=== PATIENT | female | born 1990 | race Caucasian/White ===

== ENCOUNTER 2022-10-16 10:12 | Outpatient (CLI) | payer BC, SELFPAY | END 2022-10-16 10:13 | disposition home or self-care (01) | PROVIDERS: Visit Provider Physician Assistant | DX: Z34.91 Encounter for supervision of normal pregnancy, unspecified, first trimester (principal); Z3A.13 13 weeks gestation of pregnancy | CPT/HCPCS: 87086 ==

== ENCOUNTER 2023-01-06 08:15 | Outpatient (CLI) | payer BC, SELFPAY ==
--- NOTE | 2023-01-06 08:15 | CRLHL7_ITS ---
For Patients: As a result of the Cures Act, medical imaging exams and procedure reports are released immediately into your electronic medical record. You may view this report before your referring provider. If you have questions, please contact your health care provider. 3rd TRIMESTER TWIN GROWTH INDICATION: Third trimester scan, evaluate growth in a twin gestation. COMPARISON: None TECHNIQUE: Real-time grayscale imaging of the twins was performed as well as color Doppler and spectral Doppler analysis of the umbilical arteries. FINDINGS: Sonographic imaging demonstrates a living twin diamniotic/dichorionic intrauterine gestation. Twin A demonstrates a regular cardiac rate of 154 beats per minute. Twin A has a vertex maternal right position. The placenta lies anterior. Amniotic fluid volume appears normal and the largest fluid pocket measures 7.3 cm. The estimated weight is 894 gm which lies at the 76th percentile. BPD 15th percentile. HC 16th percentile. AC 92nd percentile. FL 32nd percent. The HC/AC ratio measures 1.00 range (1.04-1.22). Twin B demonstrates a regular cardiac rate of 154 beats per minute. Twin B has a breech maternal left position. The placenta lies posterior. Amniotic fluid volume appears normal and the largest fluid pocket measures 4.7 cm. The estimated weight is 926 gm which lies at the 84th percentile. BPD 32nd percentile. HC 25th percentile. AC 93rd percentile. FL 43rd percentile. The HC/AC ratio measures 1.01 range (1.04-1.22). IMPRESSION: Twin A: Sonographic gestational age 25 weeks 3 days and sonographic due date 04/18/2023. Estimated weight 76th percentile. Abdominal circumference 92nd percentile. Twin B: Sonographic gestational age 25 weeks 6 days and sonographic due date of 04/15/2023. Estimated weight 84th percentile. Abdominal circumference 93rd percentile. Dictated by Harris Cuellar MD @ 01/06/2023 10:51:48 AM (Electronically Signed)
== END 2023-01-06 08:16 | disposition home or self-care (01) ==
PROVIDERS: Visit Provider Obstetrics & Gynecology
DX: O30.043 Twin pregnancy, dichorionic/diamniotic, third trimester (principal); Z3A.25 25 weeks gestation of pregnancy
CPT/HCPCS: 76816

== ENCOUNTER 2023-01-29 19:43 | Outpatient (CLI) | payer BC, SELFPAY ==
[2023-01-29] VITALS (7 sets, daily range): BP systolic 72–123; BP diastolic 38–85; PULSE 55–96; RESP 16; TEMP 37.2; O2SAT 96
--- NOTE | 2023-01-29 20:17 | PM.OBHPAP1 ---
OB - H&P; HPI Antepartum History of Present Illness Time Seen by Provider: 20:17 Date Seen: 01/29/23 Chief complaint: Ob unscheduled outpatient Narrative: Delicia Celis is a 32 year old female 2 para 1001 who presents at 28 weeks twin gestation which is di/di with a sudden onset of pelvic pain which is intermittent. Sometimes it is sharp and sometimes crampy. Patient denies any change in discharge. No vaginal bleeding. No spontaneous rupture membranes No recent sex. No fever shakes or chills. No other GI or complaints. No recent trauma. Patient states that her antepartum history thus far has been unremarkable. She has a history of a 37 week delivery. Specific Issues/Plans Transfer of care 13w4d P3G2-4-5-4 1. Di/Di twin gestation ASA 81mg MFM referral Level 2 US: Normal anatomy for both the twins. Growth US q 4 weeks starting after 20 week US 24 weeks: Twin A - cephalic, MVP 7.3 cm. EFW 76%, AC 92%. Twin B - Breech, MVP 4.7 cm, EFW 84%, AC 93% Weekly BPP starting at 32 weeks Delivery recommended 38-38 6/7 LDA initiated 2. History of gestational diabetes, diet controlled Hgb A1-C: 5.2% Early 1hr GTT at 16-20: 108 3. Depression, doing well on sertraline 50 mg. Initiated and has been on it for the past 2 years Flu shot: Covid: vaccinated Tdap: labs 02/08/2023: O positive, negative antibody screen. Hemoglobin 13.7, platelets 279, rubella immune. RPR negative. Hepatitis surface antigen negative, hep C nonreactive. HIV nonreactive. Gonorrhea and chlamydia negative. Pap 03/2022: NIL/-HPV First-trimester US 10/03/22: Di/Di twin gestation. Twin A: 11w3d, GABRIELLE 04/19/23. Twin B: 11w3d, GABRIELLE 04/19/23 History of Present Dating criteria: based on 1st trimester US only care: good care Ultrasounds: normal 1st trimester US complications: multiple Medical complications: none Meds Home Medications and Allergies Home Medications Medication Instructions Recorded Confirmed Type prenat.vits,razia,euc-esqp-txofx 1 tab PO QDAY 10/16/22 01/29/23 History sertraline 50 mg tablet 50 mg PO DAILY 10/16/22 01/29/23 History aspirin 81 mg chewable tablet 81 mg PO QDAY 11/11/22 01/29/23 History calcium carbonate 200 mg calcium 200 mg PO BID 12/05/22 01/29/23 History (500 mg) chewable tablet (Tums) sertraline 100 mg tablet 100 mg PO QAM 01/29/23 01/29/23 History Allergies Allergy/AdvReac Type Severity Reaction Status Date / Time No Known Drug Allergies Allergy Verified 01/06/23 09:07 OB - H&P: Exam Physical Exam: Vital signs: Temp Pulse Resp BP Pulse Ox 99.0 F 96 16 121/70 96 01/29/23 19:52 01/29/23 19:52 01/29/23 19:52 01/29/23 19:52 01/29/23 19:58 Constitutional: Constitutional: no acute distress Routine HEENT Exam: Head: Present normal inspection Detailed Labor and Delivery Exam: Patient Gravid: Yes Dilation (cm): 1 Cervix position: anterior Consistency: soft Cervical ripeness score: 50 Contraction frequency (min): 3 Contraction duration (sec): 33 Fetus (Single): Station: -1 Amniotic Membrane Status: intact Heart Rate Baseline: 133 Monitor Accelerations: Present Monitor Decelerations: None Transformation Consultant Variability: Moderate (6-25) Fetus A: station: -1 OB - A/P Antepartum Assessment and Plan (1) Dichorionic diamniotic twin gestation: Status: Acute Plan Twenty-eight week twin . labor. fibronectin done. Patient will be transferred to a level 3 institution. Patient to get 4 g of Mag for neuro protection followed by 2 grams/hour. Betamethasone given. Nifedipine 20 mg p.o. given. Additional Plan Plan: other
[2023-01-29] MEDS: LACTATED RINGERS 1000 ML 1,000 ML 75 ML IV (20:46)
[2023-01-29] MEDS: BETAMETHASONE SOD PHOS/ACETATE 6 MG/ML ML 12 MG IM (20:49)
[2023-01-29] MEDS: MAGNESIUM IV 4 GM/100 ML PIGGYBACK IVPB (20:52)
[2023-01-29] MEDS: NIFEdipine 10 MG CAPSULE 20 MG PO (20:52)
[2023-01-29 20:58] LABS: Fetal Fibronectin* Negative (Negative)
[2023-01-30 18:17] LABS: Strep B DNA Probe NEGATIVE (Negative)
[2023-01-30 23:36] LABS: Strep B Pen/Amox Allergy No
--- NOTE | 2023-02-28 17:05 | PC.OBNST ---
NST Note NST Note Start: 01/29/23 19:51 Freq: ONCE Status: Discharge Protocol: Document 01/29/23 21:50 CHELSEA (Rec: 01/29/23 23:13 CHELSEA [id number]) NST Note 2 Para (# of births) 1 EDC 04/19/23 Gestational Age In Weeks & Days 28 Weeks & 4 Days High Risk Factors Twins Patient Presented with Complaint(s) of Contractions/cramping,Other Other Complaints Cervical changes Appropriate for Gestational Age Yes RN Aly Mireles, SAMMY Date 01/29/23 Appropriate for Gestational Age Yes SAMMY Loco RN Date 01/29/23 OB NST charge Yes Complete NST Note via Write Note Yes The provider's electronic signature indicates the NST is reactive/appropriate for gestational age. *Note to provider: If an addendum is required, open the patient's chart and click on the note under the Nurse/Allied Health tab.
--- NOTE | 2023-02-28 17:39 | PC.OBNST ---
NST Note NST Note Start: 01/29/23 19:51 Freq: ONCE Status: Discharge Protocol: Document 01/29/23 21:50 CHELSEA (Rec: 01/29/23 23:13 CHELSEA [id number]) NST Note 2 Para (# of births) 1 EDC 04/19/23 Gestational Age In Weeks & Days 28 Weeks & 4 Days High Risk Factors Twins Patient Presented with Complaint(s) of Contractions/cramping,Other Other Complaints Cervical changes Appropriate for Gestational Age Yes RN Aly Mireles, ASMMY Date 01/29/23 Appropriate for Gestational Age Yes SAMMY Loco RN Date 01/29/23 OB NST charge Yes Complete NST Note via Write Note Yes The provider's electronic signature indicates the NST is reactive/appropriate for gestational age. *Note to provider: If an addendum is required, open the patient's chart and click on the note under the Nurse/Allied Health tab.
== END 2023-01-29 21:45 ==
LOC: OB OUT 19:43 → OB 19:43
PROVIDERS: Visit Provider Specialist
DX: O30.042 Twin pregnancy, dichorionic/diamniotic, second trimester (principal)
CPT/HCPCS: 59025; 81003; 84112; 87081; 87086; 87653; 99213; A9270; J0702; J3475; J7120

== ENCOUNTER 2023-01-29 21:28 | Outpatient (CLI) | payer BC, OTHER, SELFPAY | END 2023-01-29 21:29 | disposition home or self-care (01) | LOC: AMB 02-09 03:48 | PROVIDERS: Visit Provider Emergency Medicine | DX: O47.03 False labor before 37 completed weeks of gestation, third trimester (principal); Z3A.28 28 weeks gestation of pregnancy | CPT/HCPCS: A0425; A0426 ==

== ENCOUNTER 2023-01-30 20:28 | Outpatient (CLI) | payer BC, SELFPAY ==
[2023-01-30] MEDS: BETAMETHASONE SOD PHOS/ACETATE 6 MG/ML ML 12 MG IM (20:38)
== END 2023-01-30 20:45 | disposition home or self-care (01) ==
LOC: OB CLI 20:28 → OB 20:31
PROVIDERS: Visit Provider Specialist
DX: O30.003 Twin pregnancy, unspecified number of placenta and unspecified number of amniotic sacs, third trimester (principal); Z3A.29 29 weeks gestation of pregnancy
CPT/HCPCS: 99211; J0702

== ENCOUNTER 2023-02-02 07:25 | Outpatient (CLI) | payer BC, SELFPAY ==
--- NOTE | 2023-02-02 07:15 | CRLHL7_ITS ---
For Patients: As a result of the Century Cures Act, medical imaging exams and procedure reports are released immediately into your electronic medical record. You may view this report before your referring provider. If you have questions, please contact your health care provider. INDICATION: female. Twin . Follow up. Evaluate growth. TECHNIQUE: Real-time allen scale imaging of the twins was performed as well as color Doppler and spectral Doppler analysis of the umbilical arteries. COMPARISON: January 06, 2023. FINDINGS: Twin A is in vertex presentation toward the right of midline. Anterior placenta. heart rate 136 beats per minute. Normal amniotic fluid. Single deepest pocket measurement 5.5 cm. Biparietal diameter 7.2 cm, 29 weeks 0 days, 33rd percentile. Head circumference 26.4 cm, 28 weeks 5 days, 9th percentile. Abdominal circumference 26.5 cm, 30 weeks 4 days, 84th percentile. Femur length 5.3 cm, 28 weeks 1 day, 12th percentile. Composite calculated ultrasound age 29 weeks 1 day with a sonographic due date of April 19, 2023. Estimated weight 1403 g which lies at the 58th percentile. The head to abdominal circumference ratio is normal at 1.0 (0.99-1.21). Appropriate growth and maturation in the interval. Twin B is breech presentation toward the maternal left side. heart rate 146 beats per minute. Posterior placenta. Normal amniotic fluid volume index 4.2 cm. Biparietal diameter 7.1 cm, 28 weeks 3 days, 17th percentile. Head circumference 26.3 cm, 28 weeks 4 days, 9th percentile. Abdominal circumference 26.8 cm, 31 weeks 0 days, 90th percentile. Femur length 5.3 cm, 28 weeks 2 days, 16th percentile. Composite calculated ultrasound age 29 weeks 1 day with a sonographic due date of April 19, 2023. Appropriate growth and maturation in the interval. Estimated weight 1438 g which lies at the 58th percentile. Head to abdominal circumference ratio is 0.98 (0.99-1.21). IMPRESSION: Intrauterine twin pregnancies. Appropriate growth and maturation. Composite calculated ultrasound age 29 weeks 1 day. Sonographic due date April 19, 2023. Dictated by Daniel Calvillo MD @ 02/02/2023 9:23:28 AM (Electronically Signed)
== END 2023-02-02 07:26 | disposition home or self-care (01) ==
LOC: US 07:25
PROVIDERS: Visit Provider Obstetrics & Gynecology
DX: O30.043 Twin pregnancy, dichorionic/diamniotic, third trimester (principal); Z3A.29 29 weeks gestation of pregnancy
CPT/HCPCS: 76816

== ENCOUNTER 2023-02-13 12:07 | Outpatient (CLI) | payer OTHER, SELFPAY ==
--- NOTE | 2023-02-13 12:15 | CRLHL7_ITS ---
For Patients: As a result of the Century Cures Act, medical imaging exams and procedure reports are released immediately into your electronic medical record. You may view this report before your referring provider. If you have questions, please contact your health care provider. INDICATION: DI-DI TWINS COMPARISON: 02/02/2023 TECHNIQUE: Real time allen scale imaging of the twins was performed. Without non-stress testing. FINDINGS: Sonographic imaging demonstrates a twin living intrauterine gestation. TWIN A: Fetus demonstrates a regular cardiac rate of 152 beats per minute. Fetus has a vertex position, maternal right. The amniotic fluid volume appears normal and there is a single deepest pocket measurement of 5.6 cm. The fetus was active and demonstrated normal breathing movements. There was normal flexion and extension of the trunk and extremities. TWIN B: Fetus demonstrates a regular cardiac rate of 144 beats per minute. Fetus has a vertex position, maternal left. The amniotic fluid volume appears normal and there is a single deepest pocket measurement of 5.6 cm. The fetus was active and demonstrated normal breathing movements. There was normal flexion and extension of the trunk and extremities. IMPRESSION: TWIN A: Normal biophysical profile score of 8 out of 8. TWIN B: Normal biophysical profile score of 8 out of 8. Dictated by Harris Cuellar MD @ 02/13/2023 1:27:04 PM (Electronically Signed)
== END 2023-02-13 12:08 | disposition home or self-care (01) ==
LOC: US 12:08
PROVIDERS: Visit Provider Obstetrics & Gynecology
DX: O30.049 Twin pregnancy, dichorionic/diamniotic, unspecified trimester (principal)
CPT/HCPCS: 76819; 86592

== ENCOUNTER 2023-02-24 14:02 | Outpatient (CLI) | payer OTHER, SELFPAY ==
--- NOTE | 2023-02-24 14:00 | CRLHL7_ITS ---
For Patients: As a result of the Century Cures Act, medical imaging exams and procedure reports are released immediately into your electronic medical record. You may view this report before your referring provider. If you have questions, please contact your health care provider. INDICATION: DI/DI TWINS, BPP COMPARISON: 02.13.23 TECHNIQUE: Real time allen scale imaging of the twins was performed. Without non-stress testing. FINDINGS: Sonographic imaging demonstrates a twin living intrauterine gestation. TWIN A: Fetus demonstrates a regular cardiac rate of 133 beats per minute. Fetus has a vertex position. The amniotic fluid volume appears normal and there is a single deepest pocket measurement of 2.8 cm. The fetus was active and demonstrated normal breathing movements. There was normal flexion and extension of the trunk and extremities. TWIN B: Fetus demonstrates a regular cardiac rate of 150 beats per minute. Fetus has a vertex position. The amniotic fluid volume appears normal and there is a single deepest pocket measurement of 3.7 cm. The fetus was active and demonstrated normal breathing movements. There was normal flexion and extension of the trunk and extremities. IMPRESSION: TWIN A: Normal biophysical profile score of 8 out of 8. TWIN B: Normal biophysical profile score of 8 out of 8. Dictated by Harris Cuellar MD @ 02/25/2023 1:05:13 PM (Electronically Signed)
== END 2023-02-24 14:03 | disposition home or self-care (01) ==
PROVIDERS: Visit Provider Obstetrics & Gynecology
DX: O30.042 Twin pregnancy, dichorionic/diamniotic, second trimester (principal)
CPT/HCPCS: 76819

== ENCOUNTER 2023-02-27 08:20 | Outpatient (CLI) | payer OTHER, SELFPAY ==
[2023-02-27] VITALS (9 sets, daily range): BP systolic 121–140; BP diastolic 78–99; PULSE 74–88; RESP 18; TEMP 37.1
--- NOTE | 2023-02-27 08:45 | CRLHL7_ITS ---
For Patients: As a result of the Century Cures Act, medical imaging exams and procedure reports are released immediately into your electronic medical record. You may view this report before your referring provider. If you have questions, please contact your health care provider. INDICATION: CHECK CERVIX, FLUID, AND PRESENTATION COMPARISON: 02/24/2023 TECHNIQUE: Real-time allen-scale imaging of the pelvis was performed. FINDINGS: Transvaginal measurement of the cervix is 2.7 cm. The cervix is closed. Twin A: position is vertex, maternal right. Placenta posterior. Amniotic fluid normal with single deepest pocket 5.7 cm. heart rate 157 beats per minute. Twin B: position is vertex, maternal left. Placenta anterior. Normal amniotic fluid with single deepest pocket 5.5 cm. heart rate 144 beats per minute. IMPRESSION: Cervix is closed and measures 2.7 cm. Dictated by Harris Cuellar MD @ 02/27/2023 9:44:41 AM (Electronically Signed)
[2023-02-27 08:54] LABS: Appearance Urine Clear (Clear); Bilirubin Urine Negative (Negative); Blood Urine Negative (Negative); Color Urine Yellow (Yellow); Glucose Urine Negative (Negative); Ketones Urine Negative (Negative); Leukocyte Esterase Urine Trace (Negative); Nitrite Urine Negative (Negative); Protein Urine Negative (Negative); Specific Gravity Urine 1.015 (1.000-1.030); Urobilinogen Urine 0.2 (0.2-1.0)
[2023-02-27 09:17] LABS: Bacteria Urine Moderate; RBC Urine 0-2 (0-2); Squamous Epithelial Cell Urine Moderate (None-Few); WBC Urine 0-2 (0-5)
[2023-02-27 09:39] LABS: Fetal Fibronectin* Negative (Negative)
[2023-02-27 09:43] LABS: Hematocrit 36.7 % (33.0-51.0); Hemoglobin* 12.2 gm/dL (12.0-16.0); Mean Corpuscular HGB Conc 33 gm/dL (32-36); Mean Corpuscular Hemoglobin 28 pg (26-34); Mean Corpuscular Volume 84 fL (80-100); Platelet Count* 260 K/uL (140-440); Red Blood Count 4.36 m/uL (4.00-5.20); White Blood Count* 10.09 K/uL (4.50-11.00)
[2023-02-27 09:55] LABS: Total Protein Urine 16 mg/dL
[2023-02-27 09:56] LABS: Creatinine Urine 19.9 mg/dL
[2023-02-27 09:58] LABS: Slide Review Reflex No
[2023-02-27 10:13] LABS: Creatinine* 0.7 mg/dL (0.5-1.5); Estimated Glomerular Filt Rate 117 ml/min
[2023-02-27 10:14] LABS: Alanine Aminotransferase* 296 U/L (4-35); Aspartate Amino Transferase* 146 U/L (12-35); Blood Urea Nitrogen* 12 mg/dL (5-24)
--- NOTE | 2023-02-27 11:06 | PM.OBCN1 ---
OB - CN: HPI Date of Consult Time Seen by Provider: 11:06 Date Seen: 02/27/23 Patient: [facility] Patient Consult date: 02/27/23 Requesting Physician: Kayla Arzola MD Primary Care Provider: Not a Local Provider Consult Narrative Narrative: The patient is a 32 year old G 2 P 1001 at 32 5/7 weeks gestation with di/di twin that was admitted to the [facility] on 02/27/23 for observation. Patient comes in for evaluation after not feeling well for the past couple of days. Patient was mainly concerned about sharp pain in her lower back, looser stools, nauseous and feeling very fatigued yesterday. It felt as when she was in labor with her first baby. Denies fever, chills, dysuria, urgency, constipation, denies sick contacts, any itching or rash in her body. NST at labor and delivery reactive for both fetuses, sporadic and asymptomatic uterine contractions. Patient had one elevated blood pressure of 140/99. Patient denies persistent headaches, visual changes. She has noted pain in her upper abdomen for the past couple of weeks. Preeclampsia labs collected and consistent with significant transaminitis, proteinuria. This would be consistent with preeclampsia with severe features. Specific Issues/Plans Transfer of care 13w4d [id number] 1. Di/Di twin gestation ASA 81mg MFM referralLevel 2 US: Normal anatomy for both the twins. Growth US q 4 weeks starting after 20 week US: ordered 24 weeks: Twin A - cephalic, MVP 7.3 cm. EFW 76%, AC 92%. Twin B - Breech, MVP 4.7 cm, EFW 84%, AC 93% 29 weeks: Twin A - right, vertex, EFW 1403 g or 3 lb 1 oz (50%), BPD 33%, HC 9%, AC 84%, FL 12%, SDP 5.5 cm. Twin B - left, breech, EFW 1438 g or 3 lb 3 oz (58%), BPD 17%, HC 9%, AC 90%, FL 16%, SDP 4.2 cm. Weekly BPP starting at 32 weeks: ordered Delivery recommended 38-38 6/7 2. uterine contractions at 28 weeks - Short admission at [facility] completed a course of steroids. 3. Gestational diabetes, currently diet controlled. History of gestational diabetes, diet controlled Hgb A1-C: 5.2% Early 1hr GTT at 16-20: 108 Repeat 1 hr GTT = 207 3. Depression, doing well on sertraline 50 mg. Initiated and has been on it for the past 2 years Flu shot: Covid: vaccinated Tdap: 02/13/23 labs 02/08/2023: O positive, negative antibody screen. Hemoglobin 13.7, platelets 279, rubella immune. RPR negative. Hepatitis surface antigen negative, hep C nonreactive. HIV nonreactive. Gonorrhea and chlamydia negative. Pap 03/2022: NIL/-HPV First-trimester US 10/03/22: Di/Di twin gestation. Twin A: 11w3d, GABRIELLE 04/19/23. Twin B: 11w3d, GABRIELLE 04/19/23 History of Present Dating criteria: based on LMP care: good care Ultrasounds: normal 1st trimester US complications: preeclampsia History History 2 Elective abortions Para 1 Spontaneous abortions Hx # Term Pregnancies Ectopic pregnancies Hx # Pregnancies Multiple births Number of Living Children 1 Past Pregnancies Del. Date GA/Weeks Outcome Route wt Inf Gender Labor Lgth Anesthesia Location Provider Compli 08/02/20 37 live - full term vaginal delivery 3.175 kg Male 10hrs epidural [place] gestational diabetes [facility] Medical History History of depression ?Z87.59 - Personal history of other complications of , childbirth and the puerperium (ICD-10) ?Z86.59 - Personal history of other mental and behavioral disorders (ICD-10) History of vaginal delivery (08/02/20) History of gestational diabetes (2020) ?Z86.32 - Personal history of gestational diabetes (ICD-10) Surgical History History of wisdom tooth extraction ?K08.409 - Partial loss of teeth, unspecified cause, unspecified class (ICD-10) Social History Narrative: School counselor. . Non smoker Smoking Status: Never smoker Little interest or pleasure in doing things: not at all Feeling down, depressed, or hopeless: not at all Meds Home Medications and Allergies Home Medications Medication Instructions Recorded Confirmed Type prenat.vits,razia,qmo-qlli-fhewl 1 tab PO QDAY 10/16/22 02/27/23 History aspirin 81 mg chewable tablet 81 mg PO QDAY 11/11/22 02/27/23 History calcium carbonate 200 mg calcium 200 mg PO BID 12/05/22 02/27/23 History (500 mg) chewable tablet (Tums) sertraline 100 mg tablet 100 mg PO QAM 01/29/23 02/27/23 History magnesium gluconate 27 mg 27 mg PO QDAY 02/02/23 02/27/23 History magnesium (500 mg) tablet (Mag-G) Allergies Allergy/AdvReac Type Severity Reaction Status Date / Time No Known Drug Allergies Allergy Verified 02/27/23 08:41 OB - H&P: Exam Physical Exam: Vital signs: Pulse BP 78 126/85 02/27/23 10:38 02/27/23 10:38 Narrative: VITAL SIGNS: As noted above. GENERAL APPEARANCE: Alert, cooperative female in no acute distress. MOOD & AFFECT: Normal. HEART: Regular rate and rhythm without murmurs. LUNGS: Lungs are clear to auscultation bilaterally. No crackles, wheezes, or rhonchi. ABDOMEN: Gravid, not tender. : No abnormal discharge. EXTREMITIES: Nonedematous. Well perfused. Nontender. NEURO: Intact. NSTA:130bpm/moderate variability/positive accelerations/negative decelerations NSTB:140bpm/moderate variability/positive accelerations/negative decelerations Irregular, asymptomatic uterine contractions. OB - Results Labs Labs: Short CBC 02/27/23 Range/Units 09:37 WBC 10.09 (4.50-11.00) K/uL Hgb 12.2 (12.0-16.0) gm/dL Hct 36.7 (33.0-51.0) % Plt Count 260 (140-440) K/uL BMP 02/27/23 09:37 BUN 12 Creatinine 0.7 Liver Function 02/27/23 Range/Units 09:37 AST 146 H (12-35) U/L ALT 296 H (4-35) U/L Urine 02/27/23 Range/Units Unknown Urine Color Yellow (Yellow) Urine Appearance Clear (Clear) Urine pH 7.0 (5.0-8.5) Ur Specific [place] 1.015 (1.000-1.030) Urine Protein Negative (Negative) Urine Glucose (UA) Negative (Negative) FFN: Negative. Cervix 2.7cm. Closed by US. Ultrasound findings 02/27/23: FINDINGS: Transvaginal measurement of the cervix is 2.7 cm. The cervix is closed. Twin A: position is vertex, maternal right. Placenta posterior. Amniotic fluid normal with single deepest pocket 5.7 cm. heart rate 157 beats per minute. Twin B: position is vertex, maternal left. Placenta anterior. Normal amniotic fluid with single deepest pocket 5.5 cm. heart rate 144 beats per minute. IMPRESSION: Cervix is closed and measures 2.7 cm. OB - CN: A/P Assessment and Plan (1) Preeclampsia, severe: Status: Acute (2) Gestational diabetes: Status: Acute (3) Dichorionic diamniotic twin gestation: Status: Acute Plan 1. Preeclampsia with severe features: Doubling of liver enzymes, elevated protein/creatinine ratio. twin , indication for inpatient admission, observation, delivery. Transfer to a higher level of care indicated. Start Magnesium sulfate infusion for seizure prophylaxis, patient is more than 2 weeks from a course of steroids due to contractions at 28 weeks, will start first dose of a second course of steroids. Transfer accepted at [facility] by Dr. Gardner. 2. GDMA1: Blood sugar upon admission normal at 83mg/dL.
[2023-02-27] MEDS: MAGNESIUM IV 4 GM/100 ML PIGGYBACK IVPB (11:36)
[2023-02-27] MEDS: LACTATED RINGERS 1000 ML 1,000 ML 75 ML IV (11:36)
[2023-02-27] MEDS: BETAMETHASONE SOD PHOS/ACETATE 6 MG/ML ML 12 MG IM (11:37)
[2023-02-27] MEDS: ONDANSETRON 2 MG/ML inj 4 MG IVP (11:50)
--- NOTE | 2023-02-27 17:11 | PC.OBNST ---
NST Note NST Note Start: 02/27/23 08:34 Freq: ONCE Status: Discharge Protocol: Document 02/27/23 13:00 ABP (Rec: 02/27/23 17:11 ABP [id number]) NST Note 2 Para (# of births) 1 EDC 04/19/23 Gestational Age In Weeks & Days 32 Weeks & 5 Days High Risk Factors Diabetes - Gestational Diet Controlled,Twins Patient Presented with Complaint(s) of Other Other Complaints Patient reports having sharp back pain intermittently that started yesterday morning and that was her first sign of going into labor with her son. Has just felt off with some loose stools, more tired, and dog acting weird since yesterday as well. Reactive Yes Appropriate for Gestational Age Yes SAMMY Claire RN Date 02/27/23 Reactive Yes Appropriate for Gestational Age Yes SAMMY Emmanuel RN Date 02/27/23 OB NST charge Yes Complete NST Note via Write Note Yes The provider's electronic signature indicates the NST is reactive/appropriate for gestational age. *Note to provider: If an addendum is required, open the patient's chart and click on the note under the Nurse/Allied Health tab.
== END 2023-02-27 12:45 ==
LOC: OB OUT 08:20 → OB 08:22
PROVIDERS: Visit Provider Obstetrics & Gynecology
DX: O24.419 Gestational diabetes mellitus in pregnancy, unspecified control (principal); O30.043 Twin pregnancy, dichorionic/diamniotic, third trimester; Z3A.32 32 weeks gestation of pregnancy
CPT/HCPCS: 36415; 59025; 76815; 76817; 81003; 81015; 82565; 82570; 84112; 84156; 84450; 84460; 84520; 85027; 87086; 99213; J0702; J2405; J3475; J7120

== ENCOUNTER 2023-02-27 12:44 | Outpatient (CLI) | payer OTHER, SELFPAY | END 2023-02-27 12:45 | disposition home or self-care (01) | LOC: AMB 03-20 01:58 | PROVIDERS: Visit Provider Obstetrics & Gynecology | DX: O14.10 Severe pre-eclampsia, unspecified trimester (principal) | CPT/HCPCS: A0425; A0427 ==